=== PATIENT | female | born 1945 | race African-American/Black ===

== ENCOUNTER 2018-06-16 23:37 | Emergency (ER) | payer BC, MEDICARE ==
[~2018-06-16] VITALS: Ht 167.6 cm; Wt 81.3 kg
[2018-06-17] MEDS ORDERED: IBUPROFEN 800MG TABLET PO ONE (01:45)
[2018-06-17 02:23] VITALS: BP 158/65
== END 2018-06-17 04:20 | disposition home or self-care (01) ==
LOC: ER 23:37
DX: J02.9 Acute pharyngitis, unspecified (principal); I10 Essential (primary) hypertension; E11.9 Type 2 diabetes mellitus without complications
CPT/HCPCS: 87070; 87430; 99283